=== PATIENT | female | born 1960 | race Caucasian/White ===

== ENCOUNTER 2016-04-18 06:49 | Emergency (ER) | payer OTHER ==
--- NOTE | 2016-04-18 09:35 | XRay Report ---
Left shoulder 3 views: History: Pain. Findings: Normal a.c. joint and glenohumeral joint. Calcification along the greater and lesser tuberosity left humerus. Normal acromiohumeral space. Impression: Probable rotator cuff tendinitis or tendinopathy.
--- NOTE | 2016-04-18 09:58 | Emergency Department Report ---
ED Upper Extremity Inj HPI - General Chief Complaint: Shoulder Injury Stated Complaint: L SHOULDER PAIN Time Seen by Provider: 04/18/16 09:51 Source: patient, family Mode of arrival: Ambulatory Limitations: No Limitations - History of Present Illness Initial Comments: Patient is a 55-year-old female who presents to the ED complaining of left shoulder pain 1 day. Patient states she was playing basketball yesterday. She states pain began around 6 PM. Patient describes pain as throbbing in nature, 6 out of 10 intensity. Patient states she took 2 tabs Aleve at around 10 PM but with minor relief. Patient states pain with lifting arm. She denies loss of sensation, deformity, any trauma or falls of the shoulder. Patient denies fever/chills/loss of sensation/chest pain/shortness of breath/ nausea/vomiting/any other problems - Related Data Previous Rx's Medication Instructions Recorded Last Taken Type Acetaminophen/Codeine [Tylenol #3] 1 tab PO Q6H PRN #12 tab 04/18/16 Unknown Rx Naproxen [Naprosyn TAB] 500 mg PO Q8H #30 tablet 04/18/16 Unknown Rx methOCARBAMOL [Robaxin TAB] 500 mg PO BID #20 tab 04/18/16 Unknown Rx Allergies Allergy/AdvReac Type Severity Reaction Status Date / Time ibuprofen AdvReac Unknown Unverified 05/26/13 10:38 ED Review of Systems ROS: Stated complaint: L SHOULDER PAIN Other details as noted in HPI Constitutional: denies: chills, fever Eyes: denies: eye pain, eye discharge, vision change ENT: denies: ear pain, throat pain, dental pain, hearing loss Respiratory: denies: cough, shortness of breath, wheezing Cardiovascular: denies: chest pain, palpitations Endocrine: no symptoms reported. denies: increased hunger, increased thirst Gastrointestinal: denies: abdominal pain, nausea, vomiting, diarrhea Genitourinary: denies: urgency, dysuria, discharge Musculoskeletal: arthralgia, myalgia. denies: back pain, joint swelling Skin: denies: rash, lesions Neurological: denies: headache, weakness, paresthesias, confusion, abnormal gait Psychiatric: denies: anxiety, depression Hematological/Lymphatic: denies: easy bleeding, easy bruising, swollen glands ED Past Medical Hx - Past Medical History Previous Medical History?: Yes Additional medical history: Hypothyroid - Surgical History Past Surgical History?: No - Social History Smoking Status: Never Smoker Substance Use Type: Alcohol - Medications Home Medications: Home Medications Medication Instructions Recorded Confirmed Last Taken Type Acetaminophen/Codeine [Tylenol #3] 1 tab PO Q6H PRN #12 tab 04/18/16 Unknown Rx Naproxen [Naprosyn TAB] 500 mg PO Q8H #30 tablet 04/18/16 Unknown Rx methOCARBAMOL [Robaxin TAB] 500 mg PO BID #20 tab 04/18/16 Unknown Rx ED Physical Exam - General Limitations: No Limitations General appearance: alert, in no apparent distress - Head Head exam: Present: atraumatic, normocephalic - Eye Eye exam: Present: normal appearance, PERRL, EOMI Pupils: Present: normal accommodation - ENT ENT exam: Present: mucous membranes moist - Neck Neck exam: Present: normal inspection, full ROM. Absent: tenderness - Respiratory Respiratory exam: Present: normal lung sounds bilaterally. Absent: respiratory distress, wheezes, rales, rhonchi, stridor - Cardiovascular Cardiovascular Exam: Present: regular rate, normal rhythm. Absent: systolic murmur, diastolic murmur, rubs, gallop - GI/Abdominal GI/Abdominal exam: Present: soft, normal bowel sounds. Absent: tenderness, guarding, rebound, rigid - Extremities Exam Extremities exam: Present: normal inspection - Expanded Upper Extremity Exam Left General: Present: normal inspection Shoulder Exam: Present: normal inspection, full ROM, tenderness (with palpation of shoulder and elevating arm). Absent: swelling, abrasion, laceration, deformity, crepidus, dislocation, erythema Upper Arm exam: Present: normal inspection, full ROM. Absent: tenderness, swelling Elbow exam: Present: normal inspection, full ROM. Absent: tenderness, swelling , abrasion, laceration Forearm Wrist exam: Present: normal inspection, full ROM. Absent: tenderness, swelling, abrasion Hand Wrist exam: Present: normal inspection, full ROM. Absent: tenderness, swelling Vascular: Present: radial pulse (present). Absent: vascular compromise - Back Exam Back exam: Present: normal inspection, full ROM. Absent: CVA tenderness (R), CVA tenderness (L) - Neurological Exam Neurological exam: Present: alert, oriented X3, CN II-XII intact, normal gait, reflexes normal (left sided triceps and biceps reflexes normal at 2+) - Psychiatric Psychiatric exam: Present: normal affect, normal mood - Skin Skin exam: Present: warm, dry, intact, normal color. Absent: rash ED Course Vital Signs 04/18/16 06:52 Temperature 98.2 F Pulse Rate 66 Respiratory 20 Rate Blood Pressure 179/95 O2 Sat by Pulse 99 Oximetry ED Medical Decision Making - Medical Decision Making 55-year-old female presents with left shoulder tendinitis secondary to strain. Vital signs stable. Patient is in no acute distress X-ray report shows reticular cough tendinitis. Discussed results with patient. Discussed the patient follow the rice therapy. Discussed her continue heat therapy. Discussed some medication for pain and naproxen and Tylenol 3. Discussed the patient follow up with primary care physician for further management.. Patient verbally states she understands. Critical care attestation.: If time is entered above; I have spent that time in minutes in the direct care of this critically ill patient, excluding procedure time. ED Disposition Clinical Impression: Tendinitis of left rotator cuff Left shoulder strain Qualifiers: Encounter type: initial encounter Qualified Code(s): S46.912A - Strain of unspecified muscle, fascia and tendon at shoulder and upper arm level, left arm , initial encounter Disposition: DISCHARGED TO HOME OR SELFCARE Is pt being admited?: No Does the pt Need Aspirin: No Condition: Stable Instructions: RICE Therapy (ED), Heat Pack Application (ED), Rotator Cuff Tendinitis (ED) Additional Instructions: Follow-up which are primary care physician Prescriptions: Acetaminophen/Codeine [Tylenol #3] 1 tab PO Q6H PRN #12 tab PRN Reason: Pain Naproxen [Naprosyn TAB] 500 mg PO Q8H #30 tablet methOCARBAMOL [Robaxin TAB] 500 mg PO BID #20 tab Forms: Work/School Release Form(ED) Time of Disposition: 10:42
[2016-04-18 11:02] VITALS: BP 164/94
== END 2016-04-18 11:04 | disposition home or self-care (01) ==
LOC: ED 06:49
DX: S46.912A Strain of unspecified muscle, fascia and tendon at shoulder and upper arm level, left arm, initial encounter (principal); M77.9 Enthesopathy, unspecified; E03.9 Hypothyroidism, unspecified; X58.XXXA Exposure to other specified factors, initial encounter; Y93.9 Activity, unspecified; Y92.9 Unspecified place or not applicable; Y99.9 Unspecified external cause status
CPT/HCPCS: 99283

== ENCOUNTER 2016-07-14 19:40 | Emergency (ER) | payer OTHER ==
[2016-07-14 20:14] LABS: Basophils % (Auto) 0.6 % (0.0-1.8); Eosinophils % (Auto) 4.1 % (0.0-4.3); Mean Corpuscular HGB Conc 34 % (30-34); Mean Corpuscular Hemoglobin 30 pg (28-32); Mean Corpuscular Volume 87 fl (79-97); Platelet Count 242 K/mm3 (140-440); Red Blood Count 4.71 M/mm3 (3.65-5.03); Red Cell Distribution Width 13.2 % (13.2-15.2); White Blood Count 8.8 K/mm3 (4.5-11.0)
[2016-07-14 20:37] LABS: Anion Gap 19 mmol/L; Blood Urea Nitrogen 18 mg/dL (7-17); Calcium 9.3 mg/dL (8.4-10.2); Carbon Dioxide 25 mmol/L (22-30); Chloride 100.8 mmol/L (98-107); Glucose 116 mg/dL (65-100); Sodium 141 mmol/L (137-145)
--- NOTE | 2016-07-15 04:22 | Emergency Department Report ---
- General Chief complaint: Weakness Stated complaint: L SIDE NUMBNESS Time Seen by Provider: 07/15/16 03:33 Source: patient, family Mode of arrival: Ambulatory Limitations: No Limitations - History of Present Illness Initial comments: Patient is a 55-year-old woman with a history of headaches presenting with left- sided numbness and weakness. Patient reports she was making dinner tonight she had 1 minute episode of left-sided facial numbness left arm numbness and left leg numbness. Patient reports 2 more episodes while she was at home, patient has never had any prior episodes like this in the past. Patient does report she was recently placed on Cipro for UTI and Fioricet for her headaches by her primary care doctor. Currently patient is asymptomatic. Otherwise no fevers chills dizziness visual changes hearing changes nausea vomiting diarrhea chest pain shortness of breath abdominal pain travel or sick contacts MD Complaint: numbness Severity scale (0 -10): 0 - Related Data Previous Rx's Medication Instructions Recorded Last Taken Type Acetaminophen/Codeine [Tylenol #3] 1 tab PO Q6H PRN #12 tab 04/18/16 Unknown Rx Naproxen [Naprosyn TAB] 500 mg PO Q8H #30 tablet 04/18/16 Unknown Rx methOCARBAMOL [Robaxin TAB] 500 mg PO BID #20 tab 04/18/16 Unknown Rx Allergies Allergy/AdvReac Type Severity Reaction Status Date / Time ibuprofen AdvReac Unknown Unverified 05/26/13 10:38 ED Review of Systems ROS: Stated complaint: L SIDE NUMBNESS Other details as noted in HPI Comment: All other systems reviewed and negative ED Past Medical Hx - Past Medical History Previous Medical History?: Yes Hx Kidney Stones: Yes Additional medical history: Hypothyroid - Surgical History Past Surgical History?: Yes Additional Surgical History: cyst removed - Social History Smoking Status: Former Smoker Substance Use Type: Alcohol - Medications Home Medications: Home Medications Medication Instructions Recorded Confirmed Last Taken Type Acetaminophen/Codeine [Tylenol #3] 1 tab PO Q6H PRN #12 tab 04/18/16 Unknown Rx Naproxen [Naprosyn TAB] 500 mg PO Q8H #30 tablet 04/18/16 Unknown Rx methOCARBAMOL [Robaxin TAB] 500 mg PO BID #20 tab 04/18/16 Unknown Rx ED Physical Exam - General Limitations: No Limitations General appearance: alert, in no apparent distress - Head Head exam: Present: atraumatic, normocephalic - Eye Eye exam: Present: normal appearance - ENT ENT exam: Present: mucous membranes moist - Neck Neck exam: Present: normal inspection - Respiratory Respiratory exam: Present: normal lung sounds bilaterally. Absent: respiratory distress - Cardiovascular Cardiovascular Exam: Present: regular rate, normal rhythm. Absent: systolic murmur, diastolic murmur, rubs, gallop - GI/Abdominal GI/Abdominal exam: Present: soft, normal bowel sounds - Extremities Exam Extremities exam: Present: normal inspection - Back Exam Back exam: Present: normal inspection - Neurological Exam Neurological exam: Present: alert, oriented X3, CN II-XII intact, normal gait, reflexes normal, other (negative cerebellar signs, negative Romberg). Absent: motor sensory deficit - Psychiatric Psychiatric exam: Present: normal affect, normal mood - Skin Skin exam: Present: warm, dry, intact, normal color. Absent: rash ED Course Vital Signs 07/14/16 07/15/16 19:54 00:38 Temperature 98.2 F 97.5 F L Pulse Rate 67 57 L Respiratory 18 12 Rate Blood Pressure 120/75 150/82 O2 Sat by Pulse 96 98 Oximetry ED Medical Decision Making - Lab Data Result diagrams: 07/14/16 20:06 07/14/16 20:06 - EKG Data -: EKG Interpreted by Me (19:46) EKG shows normal: sinus rhythm, axis, intervals (QTC is 450 ms), QRS complexes, ST-T waves (ST changes, isolated T-wave inversion in lead III) Rate: normal (61 bpm) - EKG Data When compared to previous EKG there are: previous EKG unavailable - Radiology Data Radiology results: report reviewed CT head: No acute intracranial pathology Critical care attestation.: If time is entered above; I have spent that time in minutes in the direct care of this critically ill patient, excluding procedure time. ED Disposition Clinical Impression: Numbness Disposition: DISCHARGED TO HOME OR SELFCARE Is pt being admited?: No Condition: Stable Instructions: Paresthesia (ED) Referrals: JARET PERALES MD [Primary Care Provider] - 3-5 Days
--- NOTE | 2016-07-15 04:48 | Cat Scan Report ---
FINAL REPORT PROCEDURE: CT HEAD/BRAIN WO CON TECHNIQUE: Computerized tomography of the head was performed without contrast material. HISTORY: Weakness COMPARISON: No prior studies are available for comparison. FINDINGS: Skull and scalp: Normal. Paranasal sinuses: Normal. Ventricles and subarachnoid spaces: Normal. Cerebrum: No evidence of hemorrhage, acute infarction or mass . Cerebellum and brainstem: No evidence of hemorrhage, acute infarction or mass. Vasculature: Normal. Comments: None. IMPRESSION: Normal Examination
[2016-07-15 06:50] VITALS: BP 135/80
== END 2016-07-15 06:51 | disposition home or self-care (01) ==
LOC: ED 19:40
DX: R20.0 Anesthesia of skin (principal); E03.9 Hypothyroidism, unspecified
CPT/HCPCS: 36415; 70450; 80048; 84484; 85025; 93005; 93010; 99285

== ENCOUNTER 2016-07-24 09:41 | Outpatient (CLI) | payer OTHER ==
--- NOTE | 2016-07-29 07:56 | Vascular Lab Report ---
CAROTID DUPLEX STUDY: RIGHT PSVEDV CCA PROX: 7620 CCA DIST: 7521 ICA PROX: 5115 ICA MID: 9534 ICA DIST:[id number] ECA: 51 VERT: 41 13 LEFT PSVEDV CCA PROX: 6814 CCA DIST: 5818 ICA PROX: 5114 ICA MID: 6317 ICA DIST: 5723 ECA: 63 VERT: 45 16 REASON FOR EXAM: Left-sided numbness. COMMENTS ON THE RIGHT: Doppler frequency analysis is consistent with 16 to 49 percent diameter reduction of the internal carotid artery. Minimal amount of plaque is seen. The common carotid artery is patent. The external carotid artery is patent. The vertebral artery has antegrade flow. COMMENTS ON THE LEFT: Doppler frequency analysis is consistent with 16 to 49 percent diameter reduction of the internal carotid artery. Minimal amount of plaque is seen. The common carotid artery is patent. The external carotid artery is patent. The vertebral artery has antegrade flow. 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 Consider repeat carotid artery duplex in 12 months.
== END 2016-07-24 09:42 | disposition home or self-care (01) ==
LOC: VAS 09:41
PROVIDERS: ATTEND Internal Medicine
DX: G45.9 Transient cerebral ischemic attack, unspecified (principal)
CPT/HCPCS: 93880